=== PATIENT | male | born 1990 | race Caucasian/White ===

== ENCOUNTER 2019-06-11 08:32 | Emergency (ER) | payer OTHER ==
[~2019-06-11] VITALS: Ht 177.8 cm; Wt 79.4 kg
[2019-06-11 08:42] VITALS: BP 139/81; Ht 177.8 cm; Wt 79.4 kg
== END 2019-06-11 10:03 | disposition home or self-care (01) ==
LOC: ED 08:32
DX: S01.81XA Laceration without foreign body of other part of head, initial encounter (principal); W22.8XXA Striking against or struck by other objects, initial encounter; Y93.89 Activity, other specified; Y92.89 Other specified places as the place of occurrence of the external cause; Y99.8 Other external cause status
CPT/HCPCS: 90715; J2001

== ENCOUNTER 2019-06-13 08:01 | Emergency (ER) | payer OTHER ==
[~2019-06-13] VITALS: Ht 177.8 cm; Wt 77.1 kg
[2019-06-13 08:16] VITALS: Ht 177.8 cm; Wt 77.1 kg
[2019-06-13 08:52] VITALS: BP 118/65
== END 2019-06-13 08:52 | disposition home or self-care (01) ==
LOC: ED 08:01
DX: S01.81XD Laceration without foreign body of other part of head, subsequent encounter (principal); W22.8XXD Striking against or struck by other objects, subsequent encounter

== ENCOUNTER 2019-06-17 17:02 | Emergency (ER) | payer OTHER ==
[~2019-06-17] VITALS: Ht 175.3 cm; Wt 79.8 kg
[2019-06-17 17:11] VITALS: Ht 175.3 cm; Wt 79.8 kg
[2019-06-17 17:24] VITALS: BP 142/65
== END 2019-06-17 17:24 | disposition home or self-care (01) ==
LOC: ED 17:02
DX: S01.81XD Laceration without foreign body of other part of head, subsequent encounter (principal); X58.XXXD Exposure to other specified factors, subsequent encounter